=== PATIENT | male | born 1960 | race Caucasian/White ===

== ENCOUNTER 2021-08-27 11:25 | Emergency (ER) | payer OTHER, SELFPAY ==
--- NOTE | 2021-08-27 12:03 | XR_ITS ---
WS: [id number] XR lumbar spine 2-3V* [id number] REASON FOR EXAM: fall with back pain FINDINGS: Rotatory scoliosis of the lumbar spine convex left on the AP view. Normal lordosis of the lumbar spin e on the lateral view. No significant vertebral body abnormality. No significant compression deformit y. Significant osteophyte formation L2-L5. Significant narrowing of the intervertebral disc space at L5-S1. XR/XR lumbar spine 2-3V* [id number] IMPRESSION: No acute abnormality identified. Degenerative spondylosis of the lumbar spine as above.
[2021-08-27 12:15] VITALS: BP 114/70; PULSE 69; RESP 20; TEMP 37; O2SAT 97
--- NOTE | 2021-08-27 12:21 | ED_ITS ---
HPI - Back Pain/Injury General: Chief Complaint: Back Pain/Injury Stated Complaint: FALL/ LOW BACK PAIN/ DECREASED ROM Time Seen by Provider: 08/27/21 12:17 Source: patient Mode of arrival: wheelchair Limitations: no limitations History of Present Illness: 61-year-old male presents to the ER today for low back pain x24 hours. Patient reports he was using a amy to move cabinets yesterday across the yard when he stepped in a hole and the amy turned over, and patient tried to stop it. Patient reports he slipped in mud and fell, landing on his left side. Patient reports he had immediate pain in his low back at that time however it is significantly worsened since. Patient reports pain with lifting his left leg and with any movement of the low back. Patient reports he had difficulty sleeping last night when he woke up this morning the pain was worse and he was more stiff. Patient reports a history of herniated disc in his low back however this does not seem the same. Patient reports this seems worse [place] like. Pain is located both left and right side of the low back. Patient denies any numbness or tingling. Denies any radiating pain. Patient denies any loss of bowel or bladder control. Patient has not take anything for pain at home at this time. Pertinent past history: prior back pain Onset (ago): hour(s) (24) Timing: constant Severity: severe Pain scale (0-10): 9 Similar Symptoms Previously: No Quality: aching and spasming Location: right lower back and left lower back Radiation: none Exacerbating factors: movement Relieving factors: none Context: fall Associated symptoms: Reports no associated symptoms Work related injury: No Review of Systems General: Reports: 10 or more systems reviewed and unremarkable except in HPI and below Physical Exam Const: COMMON NORMALS: average body habitus, patient oriented x3, no limitations, healthy appearing, alert and well nourished Neck/C-Spine: COMMON NORMALS: full ROM and no lymphadenopathy Resp: COMMON NORMALS: normal respiratory effort, No retractions and clear to auscultation bilaterally AUSCULTATION: clear to auscultation bilaterally Cardio: COMMON NORMALS: regular rate and regular rhythm RATE: regular rate RHYTHM: regular rhythm : COMMON NORMALS: Yes no CVA tenderness BLADDER/KIDNEY EXAM: Yes no CVA tenderness Back/Pelvis: COMMON NORMALS: no CVA tenderness and thoracic and lumbar spine normal to inspection LUMBAR SPINE/LOWER BACK: Yes normal to inspection, Yes ROM limited (secondary to pain) and Yes paraspinal muscle tenderness Lumbar paraspinal muscle tenderness: bilateral SACROILIAC JOINTS: Yes SI joint(s) abnormal (tenderness in bilateral SI joints) SI joint details: tender to palpation Extremity: COMMON NORMALS: normal to inspection and full ROM Neuro: COMMON NORMALS: patient oriented x3 SENSORIUM/ORIENTATION: Yes alert Psych: COMMON NORMALS: mental status grossly normal, Normal thought process present and cooperative THOUGHT PROCESS: Normal thought process present Skin: COMMON NORMALS: no rashes or lesions noted GENERAL SKIN EXAM: no rashes or lesions noted Course ED course: Patient presents to the ER today for acute low back pain after a fall yesterday. Imaging performed in the ER given mechanism of injury. Patient has no neurological symptoms at this time. Vital Signs: Vital signs: Vital Signs Temperature 98.6 F 08/27/21 12:15 Pulse Rate 67 08/27/21 13:38 Respiratory Rate 18 08/27/21 13:38 Blood Pressure 115/72 08/27/21 13:38 Pulse Oximetry 95 08/27/21 13:38 MDM - Back Pain/Injury Medical Decision Making 61-year-old male presents to the ER today for acute low back pain. Patient reports this worsened after a fall yesterday. Patient has a history of herniated disc in his low back however this feels very different. Patient reports pain is located across the entire low back. This is more spasm-like h owever is rated an 8-9 out of 10 at this time. Patient reports movement makes the pain worse. Patient denies any neurological deficits. Denies loss of bowel or bladder control. Denies numbness or tingling. Denies any radiating pain. X-ray of the low back does not indicate any acute changes at this time. There does appear to be some arthritis. Likely patient's pain is an exacerbation of arthritis in addition to muscle spasms. Discussed findings with patient. We will treat conservatively at this time with anti-inflammatory, muscle relaxer, steroid. Patient should also do topical muscle rub and warm moist heat. Follow-up with PCP in 7 to 10 days if no improvement. Return to the ER with new or worsening symptoms. Patient verbalized understanding and is in agreement with the treatment plan. Labs Radiology Impressions Lumbar Spine X-Ray 08/27/21 12:03 IMPRESSION: No acute abnormality identified. Degenerative spondylosis of the lumbar spine as above. Critical Care Time Critical Care Time: Critical Care Time: No Discharge Plan Discharge Patient Disposition: Home Clinical Impression: Strain of lumbar region Condition: Stable Prescriptions: New ketorolac 10 mg tablet 10 mg PO Q8H PRN (Reason: pain) 3 Days 0RF methocarbamol 750 mg tablet 750 mg PO Q8H Qty: 21 0RF Medrol (Boby) 4 mg tablets,dose pack See Rx Instructions .ROUTE .COMPLEX Qty: 21 0RF Rx Instructions: orally per package directions Discharge Orders: Discharge ED (Routine); Ordered 08/27/21 Ordered By: Concetta Sahni Discharge Diet: Usual diet Discharge Activity: Limit activity as instructed Patient Instructions: Low Back Strain (ED), Opioid Safety Activity Restrictions/Additional Instructions: Take anti-inflammatory, muscle relaxer, steroid as discussed. Warm, moist heat recommended. Rest recommended with stretching. Follow-up with PCP in 1 week if no improvement. Return to the ER with new or worsening symptoms. Coding Level of Care Code ED Flight Engineer Helicopter for Ata Fwd Exam Comprehensive
[2021-08-27] MEDS: orphenadrine 30 mg/mL Inj 2 mL 60 MG IM (13:26)
[2021-08-27] MEDS: ketorolac 60 mg/2 mL INJ IM (13:26)
[2021-08-27 13:38] VITALS: BP 115/72; PULSE 67; RESP 18; O2SAT 95
== END 2021-08-27 13:41 | disposition home or self-care (01) ==
PROVIDERS: Emergency Provider Physician Assistant
DX: S39.012A Strain of muscle, fascia and tendon of lower back, initial encounter (principal); W01.0XXA Fall on same level from slipping, tripping and stumbling without subsequent striking against object, initial encounter
CPT/HCPCS: 72100; 96372; 99283; J1885; J2360

== ENCOUNTER → 2021-10-08 08:58 | Outpatient (BNVA) | payer OTHER, SELFPAY | PROVIDERS: PCP Nurse Practitioner Family; Visit Provider Nurse Practitioner Family | DX: E11.9 Type 2 diabetes mellitus without complications (principal); I10 Essential (primary) hypertension; E78.5 Hyperlipidemia, unspecified | CPT/HCPCS: 80053; 80061; 82043; 83036 ==

== ENCOUNTER 2022-06-10 10:36 | Emergency (ER) | payer OTHER, SELFPAY ==
[2022-06-10 10:44] VITALS: BP 131/85; PULSE 70; RESP 14; TEMP 36.8; O2SAT 99; BMI 35.9
--- NOTE | 2022-06-10 15:17 | CTR_ITS ---
PROCEDURE INFORMATION: Exam: CT Orbits With Contrast Exam date and time: 06/10/2022 4:47 PM Age: 62 years old Clinical indication: Mass, lump, or swelling; Other: Left orbit; Additional info: Possible cellulitis TECHNIQUE: Imaging protocol: Computed tomography of the orbits with contrast. Radiation optimization: All CT scans at this facility use at least one of these dose optimization techniques: automated exposure control; mA and/or kV adjustment per patient size (includes targeted exams where dose is matched to clinical indication); or iterative reconstruction. Contrast material: OMNIPAQUE 350; Contrast volume: 100 ml; Contrast route: INTRAVENOUS (IV); COMPARISON: No relevant prior studies available. RADIATION DOSE METRICS: Total DLP (mGy-cm): 376.34 FINDINGS: Paranasal sinuses: Normal. No air-fluid levels. Orbital cavities: Orbits are normal. Globes are unremarkable. Bones/joints: No acute fracture. Soft tissues: Skin thickening with extensive soft tissue swelling and subcutaneous edema in the forehead, left temporal region, and left preseptal soft tissues. No definable walled-off fluid collection in these regions. CT/CT orbit [place] w con [id number] IMPRESSION: Cellulitis with extensive soft tissue swelling and subcutaneous edema in the forehead, left temporal region, and left preseptal soft tissues. This does not extend into the left orbital cavity.
--- NOTE | 2022-06-10 15:42 | ED_ITS ---
Documented by User: Concetta Sahni PA-C 06/10/22 15:46 HPI - Eye Problem General: Chief complaint: Eye Problems Stated complaint: Left eye swollen and hurting Time Seen by Provider: 06/10/22 15:11 Source: patient Mode of arrival: ambulatory Limitations: no limitations History of Present Illness: 62-year-old male presents to the ER today for left eye pain x1 week. Patient reports about a week ago he was working and thinks he might of gotten some insulation in his left eye. Patient reports it was scratchy for a few days however about 3 days ago it started worsening. Patient reports for the last 24 hours he has had significant swelling of the eye and is unable to open his left eye at this time. Patient reports there is clear drainage noted to be coming from it. He also reports pain into the left side of his head, left ear, and left sinus. Patient reports some redness of the left side of his face and around his eye also. Patient denies any prior injury to this side of his face or head. Patient reports difficulty with vision but that is due to not being able to open his left eye. Patient reports has been doing saline rinses at home with no improvement. Review of Systems General: Reports: 10 or more systems reviewed and unremarkable except in HPI and below PFSH ED PFSH: Medical History DM w/o complication type II Hyperlipidemia Hypertension Surgical History H/O lumbosacral spine surgery History of hernia surgery S/P rotator cuff repair Physical Exam Const: COMMON NORMALS: no acute distress, average body habitus, patient oriented x3, no limitations, healthy appearing, alert and well nourished HENMT: COMMON NORMALS: normocephalic, atraumatic, external ears normal, TM's normal bilaterally, Normal external nose present, Normal nasal mucous membranes and turbinates present and moist oral mucous membranes HEAD & SCALP: normocephalic and atraumatic NOSE: Normal external nose present and Normal nasal mucous membranes and turbinates present EXTERNAL EAR: Yes external ears normal TYMPANIC MEMBRANE: TM's normal bilaterally OTHER: There is noted to be erythema of the left side of the face specifically around the left eye and left side forehead. Eye: OTHER: Patient's left conjunctive a is significantly injected with clear discharge n oted. There is swelling of the upper left eyelid. Patient is unable to open the eyelid due to the swelling. Patient's Karime acuity in the left eye is unable to be checked due to the fact that he cannot open that eye at this time. Resp: COMMON NORMALS: normal respiratory effort EFFORT & INSPECTION: Yes ab le to speak in complete sentences Cardio: COMMON NORMALS: regular rate and regular rhythm RATE: regular rate RHYTHM: regular rhythm Extremity: COMMON NORMALS: normal to inspection and full ROM Neuro: COMMON NORMALS: patient oriented x3 SENSORIUM/ORIENTATION: Yes alert Psych: COMMON NORMALS: mental status grossly normal, Normal thought process present and cooperative THOUGHT PROCESS: Normal thought process present Skin: NARRATIVE SKIN EXAM: See above, moderate erythema noted around the left thigh, left side of forehead, left cheek. Course ED course: Patient presents for left eye pain after likely insulation got into it about a week ago. Patient is having now swelling of the eyelids where he cannot open it. He also has pain in his forehead and left sinus. There is also redness of that area. Patient has been using saline at home with no improvement. We will get a CT of the orbits given the erythema and the fact the patient has type 2 diabetes and a possible infection from insulation. We will then place a Ryan lens and patient's left eye and allow 500 mL of normal saline to run through. Vital Signs: Vital signs: Vital Signs Temperature 98.2 F 06/10/22 10:44 Pulse Rate 70 06/10/22 10:44 Respiratory Rate 14 06/10/22 10:44 Blood Pressure 131/85 06/10/22 10:44 Pulse Oximetry 99 06/10/22 10:44 Oxygen Delivery Me thod 06/10/22 10:44 MDM - Eye Problem Lab Data 06/10/22 15:50 06/10/22 15:[address] 06/10/22 15:17 IMPRESSION: Cellulitis with extensive soft tissue swelling and subcutaneous edema in the forehead, left temporal region, and left preseptal soft tissues. This does not extend into the left orbital cavity. Laboratory Results WBC 3.5 10^3/uL (4.0-10.0) L 06/10/22 15:50 RBC 4.77 10^6/uL (4.1-5.3) 06/10/22 15:50 Hgb 14.8 g/dL (11.7-16.6) 06/10/22 15:50 Hct 43.8 % (42.0-52.0) 06/10/22 15:50 MCV 91.8 fl (80-94) 06/10/22 15:50 MCH 31.0 pg (28.0-34.0) 06/10/22 15:50 MCHC 33.8 g/dL (30.0-36.0) 06/10/22 15:50 RDW 13.2 % (12.1-15.1) 06/10/22 15:50 Plt Count 163 10^3/cmm (130-400) 06/10/22 15:50 MPV 9.0 fL (7.4-10.4) 06/10/22 15:50 Neut % (Auto) 63.5 % 06/10/22 15:50 Lymph % (Auto) 17.8 % 06/10/22 15:50 [place] % (Auto) 15.2 % 06/10/22 15:50 Eos % (Auto) 2.3 % 06/10/22 15:50 Baso % (Auto) 0.6 % 06/10/22 15:50 Neut # (Auto) 2.22 10^3/uL (1.8-7.7) 06/10/22 15:50 Lymph # (Auto) 0.6 10^3/uL (0.8-4.8) L 06/10/22 15:50 [place] # (Auto) 0.5 10^3/uL (0.2-0.9) 06/10/22 15:50 Eos # (Auto) 0.1 10^3/uL (0.0-0.8) 06/10/22 15:50 Baso # (Auto) 0.0 10^3/uL (0.0-0.1) 06/10/22 15:50 Nucleated RBC % (auto) 0 % 06/10/22 15:50 Nucleated RBCs # 0.0 /100WBC 06/10/22 15:50 Sodium 133 mmol/L (136-145) L 06/10/22 15:50 Potassium 4.1 mmol/L (3.5-5.1) 06/10/22 15:50 Chloride 95 mmol/L (98-107) L 06/10/22 15:50 Carbon Dioxide 26 mmol/L (22-29) 06/10/22 15:50 Anion Gap 16.1 (5-19) 06/10/22 15:50 BUN 12 mg/dL (8-23) 06/10/22 15:50 Creatinine 0.7 mg/dL (0.7-1.2) 06/10/22 15:50 GFR Calculation 113.5 mL/min (90-130) 06/10/22 15:50 Glucose 105 mg/dL (65-115) 06/10/22 15:50 Calculated Osmolality 276 mOsm/kg (285-295) L 06/10/22 15:50 Calcium 10.3 mg/dL (8.5-10.5) 06/10/22 15:50 Critical Care Time Critical Care Time: Critical Care Time: No Discharge Plan Discharge Patient Disposition: Home Clinical Impression: Periorbital cellulitis, Corneal abrasion Condition: Stable Prescriptions: New ofloxacin 0.3 % drops 2 drp ophthalmic (eye) Q6H 5 Days Qty: 10 0RF amoxicillin-pot clavulanate 875-125 mg tablet 1 tab PO BID 7 Days Qty: 14 0RF clindamycin HCl 300 mg capsule 300 mg PO TID 7 Days Qty: 21 0RF No Action simvastatin 80 mg tablet 80 mg PO DAILY fenofibrate 160 mg tablet 160 mg PO DAILY metformin 500 mg tablet 500 mg PO DAILY lisinopril-hydrochlorothiazide 10-12.5 mg tablet 1 tab PO DAILY aspirin 81 mg tablet,delayed release (DR/EC) 81 mg PO DAILY Discharge Orders: Discharge ED (Routine); Ordered 06/10/22 Ordered By: Julianne Crespo Referrals: Elicia Davison FNP [Primary Care Provider] - Tino Martin MD [Physician] - (Follow up with Dr Martin Wednesday 06/13) Discharge Diet: Advance as tolerated Discharge Activity: Resume usual activity Patient Instructions: Opioid Safety, Pain Management Sign Out Sign Out Data: Patient Sign Out occurred on 06/10/22 at 17:11. Patient's care was discussed, and care was transferred from Concetta Sahni PA-C to GEOFFREY Schmitt. Sign Out Comment: Waiting for CT and Ryan lens Last updated by Concetta Sahni PA-C at 06/10/22 16:50 Post-Handoff Eval: Patient was reevaluated after antibiotic administration and irrigation of the left eye. Tolerated the procedure well. States he is more comfortable. Patient is anxious to discharge so he can return home. Coding Level of Care Code ED Border Inspector for Chg Fwd Exam Detailed Medical Decision Making Low Complexity Time Spent (min) 120 Documented by User: GEOFFREY Schmitt 06/10/22 19:29 HPI - Eye Problem General: Chief complaint: Eye Problems Stated complaint: Left eye swollen and hurting Time Seen by Provider: 06/10/22 15:11 PFSH ED PFSH: Medical History DM w/o complication type II Hyperlipidemia Hypertension Surgical History H/O lumbosacral spine surgery History of hernia surgery S/P rotator cuff repair Course Vital Signs: Vital signs: Vital Signs Temperature 98.2 F 06/10/22 10:44 Pulse Rate 70 06/10/22 10:44 Respiratory Rate 14 06/10/22 10:44 Blood Pressure 131/85 06/10/22 10:44 Pulse Oximetry 99 06/10/22 10:44 Oxygen Delivery Me thod 06/10/22 10:44 MDM - Eye Problem Medical Decision Making Patient was evaluated in the emergency department for left eye pain, erythema, swelling, and cellulitis to the face. I assumed care at 1720. Patient is back from CT. Imaging revealed widespread soft tissue cellulitis but no orbital cellulitis. Oral Augmentin and clindamycin ordered for the treatment of cellulitis. Tetracaine, 2 drops, to left eye Ryan lens with 500 cc of saline used to irrigate left eye. Ofloxacin will be used to treat for corneal abrasion. 2 drops 4 times daily. Patient's antibiotic treatment was initiated here in the emergency department. He will be leaving with prescriptions that he will take to his pharmacy closer to home. He has been instructed on follow-up with ophthalmology. Differential Diagnosis Likely corneal abrasion, conjunctivitis and periorbital cellulitis Lab Data 06/10/22 15:50 06/10/22 15:[address] 06/10/22 15:17 IMPRESSION: Cellulitis with extensive soft tissue swelling and subcutaneous edema in the forehead, left temporal region, and left preseptal soft tissues. This does not extend into the left orbital cavity. Laboratory Results WBC 3.5 10^3/uL (4.0-10.0) L 06/10/22 15:50 RBC 4.77 10^6/uL (4.1-5.3) 06/10/22 15:50 Hgb 14.8 g/dL (11.7-16.6) 06/10/22 15:50 Hct 43.8 % (42.0-52.0) 06/10/22 15:50 MCV 91.8 fl (80-94) 06/10/22 15:50 MCH 31.0 pg (28.0-34.0) 06/10/22 15:50 MCHC 33.8 g/dL (30.0-36.0) 06/10/22 15:50 RDW 13.2 % (12.1-15.1) 06/10/22 15:50 Plt Count 163 10^3/cmm (130-400) 06/10/22 15:50 MPV 9.0 fL (7.4-10.4) 06/10/22 15:50 Neut % (Auto) 63.5 % 06/10/22 15:50 Lymph % (Auto) 17.8 % 06/10/22 15:50 [place] % (Auto) 15.2 % 06/10/22 15:50 Eos % (Auto) 2.3 % 06/10/22 15:50 Baso % (Auto) 0.6 % 06/10/22 15:50 Neut # (Auto) 2.22 10^3/uL (1.8-7.7) 06/10/22 15:50 Lymph # (Auto) 0.6 10^3/uL (0.8-4.8) L 06/10/22 15:50 [place] # (Auto) 0.5 10^3/uL (0.2-0.9) 06/10/22 15:50 Eos # (Auto) 0.1 10^3/uL (0.0-0.8) 06/10/22 15:50 Baso # (Auto) 0.0 10^3/uL (0.0-0.1) 06/10/22 15:50 Nucleated RBC % (auto) 0 % 06/10/22 15:50 Nucleated RBCs # 0.0 /100WBC 06/10/22 15:50 Sodium 133 mmol/L (136-145) L 06/10/22 15:50 Potassium 4.1 mmol/L (3.5-5.1) 06/10/22 15:50 Chloride 95 mmol/L (98-107) L 06/10/22 15:50 Carbon Dioxide 26 mmol/L (22-29) 06/10/22 15:50 Anion Gap 16.1 (5-19) 06/10/22 15:50 BUN 12 mg/dL (8-23) 06/10/22 15:50 Creatinine 0.7 mg/dL (0.7-1.2) 06/10/22 15:50 GFR Calculation 113.5 mL/min (90-130) 06/10/22 15:50 Glucose 105 mg/dL (65-115) 06/10/22 15:50 Calculated Osmolality 276 mOsm/kg (285-295) L 06/10/22 15:50 Calcium 10.3 mg/dL (8.5-10.5) 06/10/22 15:50 Discharge Plan Discharge Patient Disposition: Home Clinical Impression: Periorbital cellulitis, Corneal abrasion Condition: Stable Prescriptions: New ofloxacin 0.3 % drops 2 drp ophthalmic (eye) Q6H 5 Days Qty: 10 0RF amoxicillin-pot clavulanate 875-125 mg tablet 1 tab PO BID 7 Days Qty: 14 0RF clindamycin HCl 300 mg capsule 300 mg PO TID 7 Days Qty: 21 0RF No Action simvastatin 80 mg tablet 80 mg PO DAILY fenofibrate 160 mg tablet 160 mg PO DAILY metformin 500 mg tablet 500 mg PO DAILY lisinopril-hydrochlorothiazide 10-12.5 mg tablet 1 tab PO DAILY aspirin 81 mg tablet,delayed release (DR/EC) 81 mg PO DAILY Discharge Orders: Discharge ED (Routine); Ordered 06/10/22 Ordered By: Julianne Crespo Referrals: Elicia Davison FNP [Primary Care Provider] - Tino Martin MD [Physician] - (Follow up with Dr Martin Wednesday 06/13) Discharge Diet: Advance as tolerated Discharge Activity: Resume usual activity Patient Instructions: Opioid Safety, Pain Management Sign Out Sign Out Data: Patient Sign Out occurred on 06/10/22 at 17:11. Patient's care was discussed, and care was transferred from Concetta Sahni PA-C to GEOFFREY Schmitt. Sign Out Comment: Waiting for CT and Ryan lens Last updated by Concetta Sahni PA-C at 06/10/22 16:50 Post-Handoff Eval: Patient was reevaluated after antibiotic administration and irrigation of the left eye. Tolerated the procedure well. States he is more comfortable. Patient is anxious to discharge so he can return home. Coding Level of Care Code ED Border Inspector for Chg Fwd Exam Detailed Medical Decision Making Low Complexity Time Spent (min) 120 Documented by User: Amol Alfredo DO 06/11/22 06:24 HPI - Eye Problem General: Chief complaint: Eye Problems Stated complaint: Left eye swollen and hurting Time Seen by Provider: 06/10/22 15:11 [facility] ED PFSH: Medical History DM w/o complication type II Hyperlipidemia Hypertension Surgical History H/O lumbosacral spine surgery History of hernia surgery S/P rotator cuff repair Course Vital Signs: Vital signs: Vital Signs Temperature 98.2 F 06/10/22 10:44 Pulse Rate 70 06/10/22 10:44 Respiratory Rate 14 06/10/22 10:44 Blood Pressure 131/85 06/10/22 10:44 Pulse Oximetry 99 06/10/22 10:44 Oxygen Delivery Me thod 06/10/22 10:44 MDM - Eye Problem Medical Decision Making Patient was evaluated in the emergency department for left eye pain, erythema, swelling, and cellulitis to the face. I assumed care at 1720. Patient is back from [place]. Imaging revealed widespread soft tissue cellulitis but no orbital cellulitis. Oral Augmentin and clindamycin ordered for the treatment of cellulitis. Tetracaine, 2 drops, to left eye Ryan lens with 500 cc of saline used to irrigate left eye. Ofloxacin will be used to treat for corneal abrasion. 2 drops 4 times daily. Patient's antibiotic treatment was initiated here in the emergency department. He will be leaving with prescriptions that he will take to his pharmacy closer to home. He has been instructed on follow-up with ophthalmology. Chart reviewed and patient discussed with midlevel. Agree with assessment and plan. Lab Data 06/10/22 15:50 06/10/22 15:[address] 06/10/22 15:17
[2022-06-10 15:58] LABS: Basophils % 0.6 %; Eosinophils # 0.1 10^3/uL (0.0-0.8); Eosinophils % 2.3 %; Hematocrit 43.8 % (42.0-52.0); Hemoglobin 14.8 g/dL (11.7-16.6); Lymphocytes # 0.6 10^3/uL (0.8-4.8); Lymphocytes % 17.8 %; Mean Corpuscular HGB Conc 33.8 g/dL (30.0-36.0); Mean Corpuscular Volume 91.8 fl (80-94); Monocytes # 0.5 10^3/uL (0.2-0.9); Monocytes % 15.2 %; Neutrophils # 2.22 10^3/uL (1.8-7.7); Neutrophils % 63.5 %; Nucleated Red Blood Cells % 0 %; Platelet Count 163 10^3/cmm (130-400); Red Blood Count 4.77 10^6/uL (4.1-5.3); Red Cell Distribution Width 13.2 % (12.1-15.1); White Blood Count 3.5 10^3/uL (4.0-10.0)
[2022-06-10 16:16] LABS: Anion Gap 16.1 (5-19); Blood Urea Nitrogen 12 mg/dL (8-23); Calcium 10.3 mg/dL (8.5-10.5); Carbon Dioxide 26 mmol/L (22-29); Chloride 95 mmol/L (98-107); Glomerular Filtration Rate 113.5 mL/min (90-130); Glucose 105 mg/dL (65-115); Osmolality Calculated 276 mOsm/kg (285-295); Potassium 4.1 mmol/L (3.5-5.1); Sodium 133 mmol/L (136-145)
[2022-06-10] MEDS: iohexol 350 mg/mL 500 mL Btl (per mL) IV (16:55)
[2022-06-10] MEDS: tetracaine 0.5% Op Soln 4 mL Btl 2 DROP EYE-LEFT (18:30)
[2022-06-10] MEDS: sodium chloride 0.9% 500 ML 999 ML IV (18:30)
[2022-06-10] MEDS: clindamycin 150 mg Capsule 300 MG PO (18:53)
[2022-06-10] MEDS: amoxicillin-clav 875-125 mg Tablet 1 TAB PO (18:54)
[2022-06-10] MEDS: ofloxacin 0.3% Op Soln 5 mL Btl 2 DROP EYE-LEFT (19:46)
== END 2022-06-10 19:46 | disposition home or self-care (01) ==
PROVIDERS: Physician Assistant; Emergency Provider Nurse Practitioner; PCP Nurse Practitioner Family
DX: S05.02XA Injury of conjunctiva and corneal abrasion without foreign body, left eye, initial encounter (principal); L03.213 Periorbital cellulitis; Z79.82 Long term (current) use of aspirin; Z79.84 Long term (current) use of oral hypoglycemic drugs; E11.9 Type 2 diabetes mellitus without complications; E78.5 Hyperlipidemia, unspecified; I10 Essential (primary) hypertension; X58.XXXA Exposure to other specified factors, initial encounter
CPT/HCPCS: 70481; 80048; 85025; 99284; J7040; Q9967

== ENCOUNTER → 2022-06-15 14:31 | Outpatient (BNVA) | payer OTHER, SELFPAY | PROVIDERS: PCP Nurse Practitioner Family; Visit Provider Nurse Practitioner Family | DX: E11.9 Type 2 diabetes mellitus without complications (principal); B02.29 Other postherpetic nervous system involvement | CPT/HCPCS: 83036 ==

== ENCOUNTER → 2022-10-25 10:35 | Outpatient (BNVA) | payer OTHER, SELFPAY | PROVIDERS: PCP Nurse Practitioner Family; Visit Provider Nurse Practitioner Family | DX: I10 Essential (primary) hypertension (principal); E78.5 Hyperlipidemia, unspecified; Z79.01 Long term (current) use of anticoagulants; E11.9 Type 2 diabetes mellitus without complications | CPT/HCPCS: 80053; 80061; 83036; 85025 ==

== ENCOUNTER → 2023-05-02 11:27 | Outpatient (BNVA) | payer MEDICARE, SELFPAY | PROVIDERS: PCP Nurse Practitioner Family; Visit Provider Nurse Practitioner Family | DX: I10 Essential (primary) hypertension (principal); R53.83 Other fatigue; E11.9 Type 2 diabetes mellitus without complications | CPT/HCPCS: 80053; 85025 ==

== ENCOUNTER → 2023-05-08 10:31 | Outpatient (BNVA) | payer MEDICARE, SELFPAY | PROVIDERS: PCP Nurse Practitioner Family; Visit Provider Nurse Practitioner Family | DX: I10 Essential (primary) hypertension (principal); E11.9 Type 2 diabetes mellitus without complications; R53.83 Other fatigue; Z12.5 Encounter for screening for malignant neoplasm of prostate; Z00.00 Encounter for general adult medical examination without abnormal findings | CPT/HCPCS: 80053; 80061; 83036; 85025; G0103 ==

== ENCOUNTER 2023-06-06 09:08 | Outpatient (CLI) | payer MEDICARE, OTHER, SELFPAY ==
--- NOTE | 2023-06-06 09:14 | XRR_ITS ---
PROCEDURE INFORMATION: Exam: XR Lumbosacral Spine Exam date and time: 06/06/2023 9:20 AM Age: 63 years old Clinical indication: Low back pain; Prior surgery; Surgery date: 6+ months; Surgery type: L4 herniated disc; Additional info: M54.50 - low back pain, unspecified TECHNIQUE: Imaging protocol: Radiologic exam of the lumbosacral spine. Views: 2 or 3 views. COMPARISON: CR XR lumbar spine 2-3V* [id number] 08/27/2021 12:30 PM FINDINGS: Bones/joints: Mild disc space narrowing L4 through S1. Moderate anterior spurring at all levels, greatest at L3-L4. Anatomic alignment. Pedicles are intact. Soft tissues: Perivertebral soft tissues are normal. XR/XR lumbar spine 2-3V* [id number] IMPRESSION: Degenerative changes.
== END 2023-06-06 09:09 | disposition home or self-care (01) ==
PROVIDERS: PCP Nurse Practitioner Family; Visit Provider Nurse Practitioner Family
DX: M47.896 Other spondylosis, lumbar region (principal); M54.50 Low back pain, unspecified
CPT/HCPCS: 72100

== ENCOUNTER 2023-06-19 14:04 | Outpatient (CLI) | payer MEDICARE, OTHER, SELFPAY ==
--- NOTE | 2023-06-19 14:08 | XRR_ITS ---
PROCEDURE INFORMATION: Exam: XR Left Hip Exam date and time: 06/19/2023 2:12 PM Age: 63 years old Clinical indication: Hip pain; Left hip; Additional info: M25.552 - pain in left hip TECHNIQUE: Imaging protocol: Radiologic exam of the left hip. Views: 2 or 3 views hip with pelvis when performed. COMPARISON: No relevant prior studies available. FINDINGS: Bones/joints: No fracture or other acute abnormality. Mild degenerative changes are seen in the hip joint. Soft tissues: Unremarkable. XR/XR hip LT 2-3V wo/w pel* [id number] IMPRESSION: No acute findings.
== END 2023-06-19 14:05 | disposition home or self-care (01) ==
LOC: RAD 14:05
PROVIDERS: PCP Nurse Practitioner Family; Visit Provider Nurse Practitioner Family
DX: M25.552 Pain in left hip (principal)
CPT/HCPCS: 73502

== ENCOUNTER 2023-07-20 08:13 | Outpatient (CLI) | payer MEDICARE, OTHER, SELFPAY ==
--- NOTE | 2023-07-20 08:45 | MR_ITS ---
WS: [id number] MRI LUMBAR SPINE NONCONTRAST TECHNIQUE: Sagittal T1, T2 and STIR imaging. Axial T1 and T2 imaging. CLINICAL INFORMATION: M54.41 - Lumbago with sciatica, right side COMPARISON: None. FINDINGS: Mild lumbar curve. No acute compression. L1-L2: Mild facet arthropathy. Spinal canal and foramen are patent. L2-L3: Mild facet arthropathy. Spinal canal and foramen are patent. L3-L4: Mild facet arthropathy. Spinal canal and foramen are patent. L4-L5: Mild disc bulge with a tiny RIGHT subarticular protrusion. Mild to moderate central canal sten osis. Impingement traversing RIGHT L5 nerve root. Mild bilateral foraminal narrowing RIGHT greater th an LEFT. Moderate facet arthropathy. L5-S1: Disc osteophytic ridging. Prior RIGHT hemilaminectomy. Impingement traversing RIGHT greater t rizvi LEFT S1 nerve roots. Moderate facet arthropathy. Foramen are patent. Visualized pelvic bony structures: Normal. Paravertebral soft tissues: Normal. Prominent central disc protrusion cervical spine outside parts sales imaging at C5-6 with indentation on the cervic al cord with mild to moderate central canal stenosis. IMPRESSION: 1. Mild lumbar curve. No acute compression. 2. Mild to moderate central canal stenosis L4-5 with impingement on the RIGHT subarticular recess an d traversing RIGHT L5 nerve root. 3. Shallow central disc osteophyte protrusion L5-S1 impinges the traversing RIGHT greater than LEFT S1 nerve roots. Evidence of prior remote hemilaminectomy at this level. 4. Mild bilateral L4-5 foraminal narrowing RIGHT greater than LEFT. 5. Prominent central disc protrusion cervical spine outside parts sales imaging at C5-6 with indentation on the ce rvical cord with mild to moderate central canal stenosis
== END 2023-07-20 08:14 | disposition home or self-care (01) ==
LOC: RAD 08:13
PROVIDERS: PCP Nurse Practitioner Family; Visit Provider Nurse Practitioner Family
DX: M54.41 Lumbago with sciatica, right side (principal)
CPT/HCPCS: 72148

== ENCOUNTER → 2023-10-11 10:11 | Outpatient (BNVA) | payer MEDICARE, OTHER, SELFPAY | PROVIDERS: PCP Nurse Practitioner Family; Visit Provider Nurse Practitioner Family | DX: Z12.5 Encounter for screening for malignant neoplasm of prostate (principal); N39.0 Urinary tract infection, site not specified; I10 Essential (primary) hypertension; E11.9 Type 2 diabetes mellitus without complications; N52.9 Male erectile dysfunction, unspecified | CPT/HCPCS: 80053; 80061; 81000; 83036; G0103 ==

== ENCOUNTER → 2024-05-22 11:26 | Outpatient (BNVA) | payer MEDICARE, OTHER, SELFPAY | PROVIDERS: PCP Nurse Practitioner Family; Visit Provider Nurse Practitioner Family | DX: E11.9 Type 2 diabetes mellitus without complications (principal); R74.8 Abnormal levels of other serum enzymes | CPT/HCPCS: 80053; 80061; 83036 ==

== ENCOUNTER → 2024-09-02 11:45 | Outpatient (BNVA) | payer MEDICARE, OTHER, SELFPAY | PROVIDERS: PCP Nurse Practitioner Family; Visit Provider Nurse Practitioner Family | DX: I10 Essential (primary) hypertension (principal); E11.9 Type 2 diabetes mellitus without complications | CPT/HCPCS: 80053; 83036 ==

== ENCOUNTER → 2024-10-28 09:32 | Outpatient (BNVA) | payer MEDICARE, OTHER, SELFPAY | PROVIDERS: PCP Nurse Practitioner Family; Visit Provider Nurse Practitioner Family | DX: I10 Essential (primary) hypertension (principal); E11.9 Type 2 diabetes mellitus without complications; R53.83 Other fatigue | CPT/HCPCS: 80053; 80061; 83036; 85025 ==

== ENCOUNTER → 2025-05-21 10:39 | Outpatient (BNVA) | payer MEDICARE, OTHER, SELFPAY | PROVIDERS: PCP Nurse Practitioner Family; Visit Provider Nurse Practitioner Family | DX: R53.83 Other fatigue (principal); I10 Essential (primary) hypertension; E11.9 Type 2 diabetes mellitus without complications; E78.2 Mixed hyperlipidemia | CPT/HCPCS: 80053; 80061; 82043; 83036; 84443; 85025 ==